=== PATIENT | male | born 1955 | race Caucasian/White ===

== ENCOUNTER 2021-08-27 09:36 | Emergency (ER) | payer MEDICARE, MEDICAID ==
[2021-08-27 10:16] LABS: Hemoglobin 17.6 g/dL (14.0-18.0); Mean Corpuscular HGB CONC 33.8 g/dL (32.0-36.0); Mean Corpuscular Hemoglobin 31.9 pg (27.0-31.0); Mean Corpuscular Volume 94.6 fL (78.0-98.0); Mean Platelet Volume 7.6 fL (7.4-10.4); Platelet Count 282 thou/uL (130-400); RBC Distribution Width 12.3 % (11.5-14.5); Red Blood Cell (RBC) Count 5.52 mill/uL (4.70-6.10); White Blood Cell (WBC) Count 21.9 thou/uL (4.8-10.8)
[2021-08-27] MEDS ORDERED: cefTRIAXone\\ROCEPHIN 1 GM VIAL ONE (10:25)
[2021-08-27] MEDS ORDERED: Ketorolac Tromethamine 30 MG/ML VIAL ONE (10:25)
[2021-08-27] MEDS ORDERED: Doxycycline 100 MG CAP ONE (10:25)
[2021-08-27 10:31] LABS: ALT (SGPT) 53 U/L (8-55); AST (SGOT) 35 U/L (5-34); Albumin 4.2 g/dL (3.4-4.8); Alkaline Phosphatase 55 U/L (40-110); Anion Gap 17 mmol/L (10-20); BUN (Urea Nitrogen) 13 mg/dL (8.4-25.7); Bilirubin, Total 2.2 mg/dL (0.2-1.2); Calc. Creatinine Clearance 0 mL/min (70-130); Calcium 9.7 mg/dL (7.8-10.44); Carbon Dioxide 23 mmol/L (23-31); Chloride 102 mmol/L (98-107); Estimated GFR 98; Globulin 4.5 g/dL (2.4-3.5); Glucose 132 mg/dL (80-115); Potassium 3.9 mmol/L (3.5-5.1); Protein, Total 8.7 g/dL (5.8-8.1); Sodium 138 mmol/L (136-145)
[2021-08-27 10:35] LABS: Band 2 % (5-11); Lymphocytes 7 % (21-51); MDiff Complete? YES; Monocytes 4 % (0-10); Neutrophil 87 % (42-75)
[2021-08-27 11:39] LABS: Bilirubin Moderate (Negative); Blood, Urine Moderate (Negative); Glucose, Urine (Dipstick) Negative (Negative); Ketone, Urine 15 mg/dL (Negative); Leukocyte Large (Negative); Nitrite Positive (Negative); Protein, Urine (Dipstick) > or equal to 300 mg/dL (Neg-Trace); Urobilinogen > or = 8.0 mg/dL (Less than 2); pH, Urine 5.5 (5.0-9.0)
[2021-08-27 11:40] LABS: Bacteria/HPF 3+ HPF (None Seen); Clarity Cloudy (Clear); WBC/HPF 21-50 HPF (0-3)
[2021-08-27 11:41] LABS: Other Microscopic Description C&S SET UP
[2021-08-28 17:06] LABS: Chlam.trachomatis by PCR,Urine Not Detected (NotDetected)
== END 2021-08-27 11:35 | disposition short-term general hospital (02) ==
LOC: BURERS 09:36 → SUATTDRO 09:36 → BURERS 11:29
PROVIDERS: ATTEND Physician Assistant
DX: N34.2 Other urethritis (principal); N50.89 Other specified disorders of the male genital organs; Z87.891 Personal history of nicotine dependence
CPT/HCPCS: 80053; 81003; 81015; 83605; 85025; 87077; 87086; 87186; 87491; 87591; 96365; 96375; J0696; J1885